=== PATIENT | male | born 1955 | race Caucasian/White ===

== ENCOUNTER 2016-10-11 18:56 | Emergency (ER) | payer OTHER ==
[~2016-10-11 18:56] MED LIST: AMOX1TAB15 PO; ASPI-556 PO; GLIP10 PO; INSU100C4 SQ; LISI1TAB11 PO; LORA10TA7 PO; XALA2.5OS OU
== END 2016-10-11 19:30 | disposition left against medical advice (07) ==
LOC: EMS 18:59
DX: M25.569 Pain in unspecified knee (principal); Z53.21 Procedure and treatment not carried out due to patient leaving prior to being seen by health care provider

== ENCOUNTER 2017-03-29 23:09 | Emergency (ER) | payer OTHER ==
[~2017-03-29] VITALS: Ht 165.1 cm; Wt 90.9 kg
[2017-03-29] MEDS ORDERED: INSLAN SQ ×2 (23:22)
[2017-03-29] MEDS ORDERED: INSREG SQ ×2 (23:22)
[2017-03-29 23:29] LABS: GLUCOSE,POINT OF CARE 176 MG/DL (70-110)
[2017-03-30 01:42] VITALS: BP 123/81
== END 2017-03-30 01:44 | disposition home or self-care (01) ==
LOC: EMS 23:10
DX: J32.9 Chronic sinusitis, unspecified (principal); J06.9 Acute upper respiratory infection, unspecified; E11.65 Type 2 diabetes mellitus with hyperglycemia; I10 Essential (primary) hypertension; Z79.4 Long term (current) use of insulin
CPT/HCPCS: 82962; 99283

== ENCOUNTER 2017-05-10 11:14 | Emergency (ER) | payer OTHER ==
[~2017-05-10] VITALS: Ht 165.1 cm; Wt 90.0 kg
[~2017-05-10 11:14] MED LIST changes: -AMOX1TAB15 PO; +INSLAN SQ; +INSREG SQ; -INSU100C4 SQ
[2017-05-10] MEDS ORDERED: ACET-66 PO (11:18)
[2017-05-10] MEDS ORDERED: GUAIF600 PO (11:18)
[2017-05-10 11:23] LABS: GLUCOSE,POINT OF CARE 100 MG/DL (70-110)
[2017-05-10 11:56] LABS: INFLUENZA TYPE B NEGATIVE FOR TYPE B (NEGATIVE)
[2017-05-10] MEDS ORDERED: KETOROLAC TROMETHAMINE 60 MG/2 ML VIAL IM ONE (12:15)
[2017-05-10] MEDS ORDERED: BENZONATATE 100 MG CAPSULE PO ONE (12:15)
[2017-05-10] MEDS ORDERED: OSELTAMIVIR PHOSPHATE 75 MG CAPSULE PO ONE (12:15)
[2017-05-10 14:33] VITALS: BP 117/64
== END 2017-05-10 14:34 | disposition home or self-care (01) ==
LOC: EMS 11:16
DX: J98.8 Other specified respiratory disorders (principal); J11.1 Influenza due to unidentified influenza virus with other respiratory manifestations; E11.9 Type 2 diabetes mellitus without complications; I11.9 Hypertensive heart disease without heart failure; Z98.62 Peripheral vascular angioplasty status; Z79.4 Long term (current) use of insulin
CPT/HCPCS: 71020; 82962; 87804; 96372; 99285; J1885

== ENCOUNTER 2018-05-03 13:36 | Emergency (ER) | payer OTHER ==
[~2018-05-03] VITALS: Ht 165.1 cm; Wt 90.9 kg
[~2018-05-03 13:36] MED LIST changes: +ACET-66 PO; +GUAIF600 PO; -INSREG SQ
[2018-05-03] MEDS ORDERED: PIOG30TA10 PO (13:45)
[2018-05-03 15:37] LABS: BASOPHILS % (AUTO) 1.1 % (0.0-2.0); EOSINOPHILS % (AUTO) 4.8 % (1.0-6.0); HEMATOCRIT 48.5 % (41-53); HEMOGLOBIN 16.9 g/dL (13.5-17.5); LYMPHOCYTES # (AUTO) 2.8 K/uL (1.0-4.8); LYMPHOCYTES % (AUTO) 34.1 % (22.0-44.0); MEAN CORPUSCULAR HEMOGLOBIN 31.9 pg (26.0-34.0); MEAN CORPUSCULAR HGB CONC 34.9 G/dL (31.0-37.0); MEAN CORPUSCULAR VOLUME 91 fL (80-100); MONOCYTES # (AUTO) 0.7 K/uL (0.1-1.0); MONOCYTES % (AUTO) 8.3 % (2.0-9.0); NEUTROPHILS # (AUTO) 4.3 K/uL (1.8-7.7); NEUTROPHILS % (AUTO) 51.7 % (40.0-70.0); PLATELET COUNT (AUTO) 222 K/uL (150-450); RED BLOOD CELL COUNT(AUTO) 5.31 MIL/uL (4.50-5.90); RED CELL DISTRIBUTION WIDTH 13.2 % (11.5-14.5)
[2018-05-03 15:41] LABS: ANION GAP 7 mmol/L (8-16); CALCIUM, TOTAL 9.3 mg/dL (8.8-10.5); CARBON DIOXIDE 28 mmol/L (22-29); CHLORIDE 103 mmol/L (98-107); CREATININE 0.87 mg/dL (0.60-1.30); GLOMERULAR FILTR. RATE CALC > 60 mL/min (>60); GLUCOSE,RANDOM 60 mg/dL (70-110); POTASSIUM 3.6 mmol/L (3.5-5.1); SODIUM SERUM 138 mmol/L (136-145); UREA NITROGEN, BLOOD 15 mg/dL (7-18)
[2018-05-03 15:56] LABS: APPEARANCE,URINE CLEAR (CLEAR); BILIRUBIN,URINE NEGATIVE (NEGATIVE); GLUCOSE, URINE (UA) NEGATIVE (NEGATIVE); KETONES,URINE NEGATIVE (NEGATIVE); LEUKOCYTE ESTERASE ,URINE NEGATIVE (NEGATIVE); NITRATE,URINE NEGATIVE (NEGATIVE); OCCULT BLOOD,URINE NEGATIVE (NEGATIVE); PROTEIN,URINE NEGATIVE (NEGATIVE); UROBILINOGEN,URINE 0.2 mg/dL (<=1.0)
[2018-05-03 16:03] LABS: B-TYPE NATRIURETIC PEPTIDE 14 pg/mL (0-100)
[2018-05-03 16:05] LABS: ALANINE AMINOTRANSFERASE 40 U/L (12-78); ALBUMIN 4.1 g/dL (3.4-5.0); ALKALINE PHOSPHATASE 67 U/L (46-116); ASPARTATE AMINOTRANSFERASE 27 U/L (15-37); BILIRUBIN,TOTAL 0.3 mg/dL (0.1-1.0); CREATINE KINASE, TOTAL ONLY 116 U/L (39-308); TOTAL PROTEIN, SERUM 8.3 g/dL (6.4-8.2)
[2018-05-03 18:24] LABS: GLUCOSE,POINT OF CARE 78 MG/DL (70-110)
[2018-05-03 19:01] VITALS: BP 115/73
== END 2018-05-03 19:03 | disposition home or self-care (01) ==
LOC: EMS 13:36
DX: G47.00 Insomnia, unspecified (principal); R42 Dizziness and giddiness; R19.7 Diarrhea, unspecified; E11.9 Type 2 diabetes mellitus without complications; I10 Essential (primary) hypertension; Z79.4 Long term (current) use of insulin; Z79.82 Long term (current) use of aspirin; Z79.899 Other long term (current) drug therapy
CPT/HCPCS: 70450; 93005

== ENCOUNTER 2018-06-11 09:15 | Emergency (ER) | payer OTHER ==
[~2018-06-11] VITALS: Ht 170.2 cm; Wt 81.8 kg
[~2018-06-11 09:15] MED LIST changes: -ACET-66 PO; -GUAIF600 PO; +PIOG30TA10 PO; -XALA2.5OS OU
[2018-06-11 09:29] LABS: GLUCOSE,POINT OF CARE 165 MG/DL (70-110)
[2018-06-11 12:21] VITALS: BP 113/69
== END 2018-06-11 12:52 | disposition home or self-care (01) ==
LOC: EMS 09:17
DX: S62.626A Displaced fracture of middle phalanx of right little finger, initial encounter for closed fracture (principal); S09.90XA Unspecified injury of head, initial encounter; H70.12 Chronic mastoiditis, left ear; I10 Essential (primary) hypertension; E11.9 Type 2 diabetes mellitus without complications; W18.09XA Striking against other object with subsequent fall, initial encounter; Y93.01 Activity, walking, marching and hiking; Y92.89 Other specified places as the place of occurrence of the external cause; Y99.8 Other external cause status; Z79.899 Other long term (current) drug therapy; Z79.4 Long term (current) use of insulin; Z79.82 Long term (current) use of aspirin
CPT/HCPCS: 70450

== ENCOUNTER 2018-10-25 19:17 | Emergency (ER) | payer MEDICARE, OTHER ==
[~2018-10-25] VITALS: Ht 165.1 cm; Wt 90.9 kg
[2018-10-25 19:34] LABS: GLUCOSE,POINT OF CARE 190 MG/DL (70-110)
[2018-10-25 21:42] LABS: BASOPHILS % (AUTO) 0.9 % (0.0-2.0); EOSINOPHILS % (AUTO) 4.4 % (1.0-6.0); HEMATOCRIT 42.2 % (41-53); HEMOGLOBIN 14.1 g/dL (13.5-17.5); LYMPHOCYTES # (AUTO) 2.1 K/uL (1.0-4.8); LYMPHOCYTES % (AUTO) 34.5 % (22.0-44.0); MEAN CORPUSCULAR HGB CONC 33.5 G/dL (31.0-37.0); MEAN CORPUSCULAR VOLUME 93 fL (80-100); MONOCYTES # (AUTO) 0.5 K/uL (0.1-1.0); MONOCYTES % (AUTO) 8.9 % (2.0-9.0); NEUTROPHILS # (AUTO) 3.1 K/uL (1.8-7.7); NEUTROPHILS % (AUTO) 51.3 % (40.0-70.0); PLATELET COUNT (AUTO) 214 K/uL (150-450); RED BLOOD CELL COUNT(AUTO) 4.56 MIL/uL (4.50-5.90); RED CELL DISTRIBUTION WIDTH 13.4 % (11.5-14.5)
[2018-10-25 21:53] LABS: ANION GAP 7 mmol/L (8-16); APPEARANCE,URINE CLEAR (CLEAR); BILIRUBIN,URINE NEGATIVE (NEGATIVE); CALCIUM, TOTAL 9.2 mg/dL (8.8-10.5); CARBON DIOXIDE 28 mmol/L (22-29); CHLORIDE 105 mmol/L (98-107); CREATININE 1.07 mg/dL (0.60-1.30); GLOMERULAR FILTR. RATE CALC > 60 mL/min (>60); GLUCOSE, URINE (UA) NEGATIVE (NEGATIVE); GLUCOSE,RANDOM 187 mg/dL (70-110); KETONES,URINE NEGATIVE (NEGATIVE); LEUKOCYTE ESTERASE ,URINE NEGATIVE (NEGATIVE); NITRATE,URINE NEGATIVE (NEGATIVE); OCCULT BLOOD,URINE NEGATIVE (NEGATIVE); PH,URINE 6.5 (5.0-8.0); POTASSIUM 3.9 mmol/L (3.5-5.1); PROTEIN,URINE NEGATIVE (NEGATIVE); SODIUM SERUM 140 mmol/L (136-145); UREA NITROGEN, BLOOD 23 mg/dL (7-18); UROBILINOGEN,URINE 0.2 mg/dL (<=1.0)
[2018-10-25] MEDS ORDERED: FUROSEMIDE 40 MG/4 ML VIAL IVP ONE (22:00)
[2018-10-25 22:09] LABS: ALANINE AMINOTRANSFERASE 32 U/L (12-78); ALBUMIN 3.3 g/dL (3.4-5.0); ALKALINE PHOSPHATASE 57 U/L (46-116); ASPARTATE AMINOTRANSFERASE 20 U/L (15-37); BILIRUBIN,TOTAL 0.3 mg/dL (0.1-1.0); THYROID STIMULATING HORMONE 2.77 uIU/mL (0.36-3.74); TOTAL PROTEIN, SERUM 6.9 g/dL (6.4-8.2)
[2018-10-25 22:10] LABS: BACTERIA,URINE None Seen /HPF (None Seen); RBC,URINE None Seen /HPF (0-2); SQUAMOUS EPITHELIAL CELL,UR Rare /LPF (None Seen); WBC,URINE 0-2 /HPF (0-5)
[2018-10-25 22:31] LABS: B-TYPE NATRIURETIC PEPTIDE 16 pg/mL (0-100)
[2018-10-26] MEDS ORDERED: IOVERSOL 350 MG/ML 150 ML VIAL ONE (00:24)
[2018-10-26] MEDS ORDERED: SODIUM CHLORIDE 0.9% 100 ML ONE (00:24)
[2018-10-26 03:00] VITALS: BP 105/80
== END 2018-10-26 03:18 | disposition home or self-care (01) ==
LOC: EMS 19:20
DX: R60.0 Localized edema (principal); R06.02 Shortness of breath; E11.9 Type 2 diabetes mellitus without complications; I10 Essential (primary) hypertension; Z79.4 Long term (current) use of insulin; Z79.82 Long term (current) use of aspirin; Z79.899 Other long term (current) drug therapy
CPT/HCPCS: 36415; 71046; 71275; 80053; 81001; 82962; 83880; 84443; 84484; 85025; 85379; 93005; 93970; 96374; 99284; J1940; J7050; Q9967

== ENCOUNTER 2018-11-16 20:46 | Emergency (ER) | payer MEDICARE ==
[~2018-11-16] VITALS: Ht 165.1 cm; Wt 90.9 kg
[~2018-11-16 20:46] MED LIST changes: -LORA10TA7 PO
[2018-11-16] MEDS ORDERED: SIMV-260 PO (21:03)
[2018-11-16 21:08] LABS: GLUCOSE,POINT OF CARE 256 MG/DL (70-110)
[2018-11-16] MEDS ORDERED: MAALOX/LIDOCAINE/NYSTATIN SUSP 5 ML ORAL.SYG MM ONE (22:45)
[2018-11-16] MEDS ORDERED: DEXAMETHASONE 4 MG TABLET PO ONE (22:45)
[2018-11-17 00:15] VITALS: BP 122/79
== END 2018-11-17 00:27 | disposition home or self-care (01) ==
LOC: EMS 20:48
DX: J32.9 Chronic sinusitis, unspecified (principal); I11.0 Hypertensive heart disease with heart failure; I50.9 Heart failure, unspecified; E11.9 Type 2 diabetes mellitus without complications; Z79.4 Long term (current) use of insulin; Z79.82 Long term (current) use of aspirin
CPT/HCPCS: 36415; 71045; 82962; 84484; 93005; 99284; J8540